=== PATIENT | female | born 1965 | race Caucasian/White ===

== ENCOUNTER 2018-02-06 01:11 | Emergency (ER) | payer MEDICAID, SELFPAY ==
[2018-02-06] VITALS (53 sets, daily range): BP systolic 65–155; BP diastolic 38–103; PULSE 87–128; RESP 1–48; TEMP 36.8; O2SAT 92–100
[2018-02-06] MEDS: Amiodarone 150 MG/3 ML VIAL 300 MG IVP (01:36)
[2018-02-06 02:00] LABS: Abs Immature Grans 0.23 k/cumm (0.0-0.09); Absolute Basophil Count 0.09 k/cumm (0.0-0.2); Absolute Eosinophil Count 0.18 k/cumm (0.0-0.7); Absolute Lymphocyte Count 8.27 k/cumm (1.2-3.4); Absolute Monocyte Count 0.28 k/cumm (0.11-0.7); Eosinophils % 1.9; HCT 45.7 % (36.0-46.0); HGB 15.6 g/dL (12.0-15.5); Immature Grans % 2.5; Mean Corp. HGB Concentration 34.1 g/dL (32.0-36.0); Mean Corpuscular Hemoglobin 31.1 pg (27.0-33.0); Mean Corpuscular Volume 91.2 fL (80-95); Mean Platelet Volume 10.6 fL (8.0-11.0); Neutrophils % 2.9; Platelet Count 292 x1000/uL (130-400); RBC 5.01 m/cumm (4.00-5.20); RBC Distribution Width 13.3 % (11.7-14.6); White Blood Cell Count 9.32 k/cumm (4.4-10.8)
--- NOTE | 2018-02-06 02:02 | ED.GENADUL_ITS ---
Discharge Plan Disposition Patient Disposition: [facility] Condition: Stable Discharge Details Chief Complaint: CodeBlue Clinical Impression: Cardiac arrest with ventricular fibrillation, ST elevation (STEMI) myocardial infarction Primary Care Provider: Sarah Cole ED Provider: Rafa Espinoza Cidra Meds and New Rx's Prescriptions: No Action tolterodine [Detrol] 2 MG tablet 2 mg PO HS Qty: 14 RF: 0 Medical Decision Making Patient unresponsive with no pulse and agonal respirations. CODE BLUE called. Everything occurred relatively quickly and at the same time. Patient was intubated by me with a 7.0 ET tube on the first attempt without any complications. She required no medications. IO was placed in the right tibia by nursing. IV was placed in the left antecubital by EMS. CPR was started. Monitor and pads applied. Patient found to be in V. fib. Patient shocked and CPR resumed. Epinephrine given on recheck patient remained in V. fib with no pulse. Second shock was given. Second round of epinephrine was given. CPR was continued. Third round of epinephrine given. 300 mg of amiodarone given. Third shock given. CPR continued. Patient eventually developed an organized rhythm and developed a pulse. She began to breathe on her own. Because of complaints of back followed by chest pain concern for dissection. Possibility of PE. Possibility of [place]. Initial EKG sinus rhythm. V3 appeared to have some ST elevation but her other leads were unremarkable. Blood pressure did drop prior to going to CAT scan. She received a couple of doses of phenylephrine and ultimately was started on a norepinephrine drip. She was brought to CAT scan. Head and cervical spine CT obtained because of her collapse in the waiting room. Chest abdomen pelvis CTA to rule out PE and dissection. Laboratory studies sent. NG tube was placed by nursing. Plan to Place Obrien when return from CT. In CT scan she actually woke up and seemed to be purposeful reaching for tubes. She also vomited. She was given Versed as a bolus and started on a drip for sedation. Laboratory studies significant for a white count of 9.3 with an ANC of only 270. She has mostly lymphocytes present but no blasts reported. Coags are normal. Chemistries show a potassium of 2.2. She is ordered for 3 rounds of IV potassium. Bicarb was 20. Anion gap 20. Creatinine 1.2. Glucose 280. Magnesium and calcium are normal. Initial troponin 0.15 which is indeterminate. On return from CT scan patient was being maintained on lactated ringer, norepinephrine, Versed. She required periodic boluses of Versed in addition to titrating her Versed drip up. However, her blood pressure was good and we were able to titrate her norepinephrine down. Repeat EKG done showed sinus rhythm with ST elevation now present in V1 through V4. There was no reciprocal change noted. There were no limb lead changes noted, however, there is a distinct difference between this EKG in the first and I immediately called [facility] for cardiology consultation. Head and cervical spine CT scan were negative for traumatic injury. While on the line with [facility] cardiology CTA of the chest abdomen and pelvis returned negative for dissection, negative for pulmonary embolus, some left basilar changes but no pleural effusion or pericardial effusion. An ABG was obtained which showed a pH of 7.3, bicarb is 17, PCO2 is 34 and PO2 82. DART was dispatched. Given the 15 minutes of CPR and the likelihood the patient would be back to [employer] within the window required we did not give thrombolytics. She did receive Plavix down her NG tube, aspirin rectally, and heparin was started. We also decided to start an amiodarone drip given that she responded to an amiodarone bolus. On arrival DART elected to start her on propofol drip and turn off the Versed. Amiodarone drip was started. Norepinephrine was turned off. Heparin and potassium were continued. Patient was stable at the time of leaving the emergency department. Lab Data Lab results reviewed: Yes I reviewed the patient's lab results. ECG Data Attestation: I personally reviewed and interpreted this ECG (s) as follows: HPI General Mode of arrival: ambulatory . Date/Time Provider Initiated Documentation: 02/06/18 01:46 . Limitations to Documentation: other (v-fib arrest) . Information obtained by: family . HPI Narrative: Patient was brought into the ED by her because of complaint of back and chest pain. After registering while still in the waiting room she collapsed. She was brought back to the resuscitation room. As I entered the room she was unresponsive with agonal respirations. She had no pulse. Code was immediately called. reports that she has no past medical history and is on no medications. He reports that she was fine when she went to bed. She woke him up complaining of back pain. She also reported chest pain which is when he decided to bring her in. He states that she smoked a cigarette on the way in and stated she was feeling better. Related Data Home Medications Medication Instructions Recorded Confirmed tolterodine [Detrol] 2 mg PO HS #14 tablet 08/10/15 Previous Rx's Medication Instructions Recorded tolterodine [Detrol] 2 mg PO HS #14 tablet 08/10/15 Allergies Allergy/AdvReac Type Severity Reaction Status Date / Time No Known Allergies Allergy Unverified 08/10/15 09:03 Review of Systems Review of Systems Unobtainable due to (critical patient) [facility] Social History Smoking/Tobacco Use Status: Current every day Exam Const Other: Unresponsive with agonal respirations HENMT Head: normocephalic General nose exam: external nose abnormal nasal abrasion (Entire nose has a large abrasion) Mouth: tongue normal, oropharynx normal and moist mucous membranes Neck Neck: trachea midline and supple Resp Auscultation: clear to auscultation bilaterally (Lungs clear after patient intubated equal breath sounds present.) Cardio Other: Initial evaluation without pulses GI Inspection: non-distended Palpation: soft Skin General skin exam: no rashes or lesions noted Neuro General: other (Unresponsive to any stimuli.) Extrem General: no clubbing, cyanosis or edema Procedures Intubation sedative: none Laryngoscope: Benjy ET Tube Size: 7 ET Tube Uncuffed: Yes Tube Secured Depth (cm): 24 Tube Secured Location: lips Tube Placement Confirmation: visualized tube passing through cords, equal breath sounds bilaterally and confirmation by capnometry Critical Care Time Critical Care Time: Yes Total Critical Care Time: 120 Attestation: Critical care time for V. fib arrest and STEMI
[2018-02-06 02:10] LABS: Absolute Neutrophil Count 0.27 k/cumm (1.2-6.7)
[2018-02-06 02:15] LABS: ALT 82 U/L (12-78); AST 83 U/L (15-37); Albumin 3.5 g/dL (3.4-5.0); Alkaline Phosphatase 92 U/L (46-116); Anion Gap 20.3 mmol/L (3-11); BUN 12 mg/dL (7-18); Bilirubin, Total 0.1 mg/dL (0.2-1.0); CO2 19.7 mmol/L (21.0-32.0); CREATININE 1.18 mg/dL (0.55-1.02); Calcium 8.6 mg/dL (8.5-10.1); Chloride 100 mmol/L (98-107); Glucose 280 mg/dL (70-100); Magnesium 2.1 mg/dL (1.8-2.4); Sodium 140 mmol/L (136-145); Total Protein 7.2 g/dL (6.4-8.2)
[2018-02-06 02:21] LABS: Potassium 2.2 mmol/L (3.5-5.1); Troponin I 0.15 ng/mL (0.00-0.06)
[2018-02-06 02:28] LABS: PTT Activated 23.9 sec (21.0-31.4); Prothrombin Time 9.5 sec (9.3-11.0)
[2018-02-06 02:30] LABS: Diff Comment Agrees w/ Instrument
[2018-02-06] MEDS: Midazolam 2 MG/2 ML VIAL 4 MG IVP ×2 (02:30→03:40)
--- NOTE | 2018-02-06 02:30 | DI.CT_ITS ---
SYMPTOM/DIAGNOSIS: SYNCOPE AND COLLAPSE CRANIAL CT: A noncontrast enhanced examination was performed. There is no evidence of an intra or extra axial hemorrhage, mass, edema or fluid collection. The ventricles are unremarkable. There is no skull fracture. The sinuses are unremarkable. There is no mass or diffusion. The soft tissues are unremarkable. SUMMARY: No acute intra cranial abnormality is identified. C-SPINE CT: The study was conducted according to the usual protocol without contrast enhancement. There is straightening of the normal cervical lordosis. Mild central spinal stenosis secondary to disc bulges and osteophytic spurring is noted and is most advanced at C5-C6. The soft tissues are unremarkable. The lung apices are normal. The nasogastric and endotracheal tubes are present. The visualized portions of these tubes are in good position. SUMMARY: There is no acute abnormality involving the cervical spine.
[2018-02-06] MEDS: Midazolam 2 MG/2 ML VIAL 3 MG IVP (02:40)
--- NOTE | 2018-02-06 02:50 | DI.CT_ITS ---
SYMPTOM/DIAGNOSIS: BACK/CHEST PAIN WITH SYNCOPE CT THORAX, ABDOMEN AND PELVIS: This is a CTA examination and was carried out according to the usual protocol with intravenous administration of [address] angiography was performed with multi slice acquisition and multi planar and 3D reconstruction. The pulmonary arteries are normal with no evidence of embolic disease. The aorta is normal. There is no aneurysm or dissection. There are nonspecific left lung infiltrates or edema. The pleural space is normal. There is no pneumothorax or pleural effusion. The heart is normal. The lymph nodes are unremarkable. No acute bony abnormality seen. The soft tissues are unremarkable. SUMMARY: Nonspecific predominant left lung infiltrate. No evidence of overt congestive failure. The findings most likely represent an acute pneumonitis and should be correlated with the patient's clinical status. Follow up imaging is suggested to assess clearing.
--- NOTE | 2018-02-06 02:53 | DI.VRAD_ITS ---
EXAM: CT Head Without Contrast EXAM DATE/TIME: 02/06/2018 1:53 AM CLINICAL HISTORY: 52 years old, female; Injury or trauma; Fall; Initial encounter; Blunt trauma (contusions or hematomas); With loss of consciousness; Not specified; Injury date: 11/07/17; Injury details: Fall face first TECHNIQUE: Axial computed tomography images of the head/brain without contrast. All CT scans at this facility use at least one of these dose optimization techniques: automated exposure control; mA and/or kV adjustment per patient size (includes targeted exams where dose is matched to clinical indication); or iterative reconstruction. Coronal and sagittal reformatted images were created and reviewed. COMPARISON: No relevant prior studies available. FINDINGS: Brain: Normal. No hemorrhage. No significant white matter disease. No edema. Ventricles: Normal. No ventriculomegaly. Bones/joints: Normal. No acute fracture. Sinuses: Normal as visualized. No acute sinusitis. Mastoid air cells: Normal as visualized. No mastoid effusion. Soft tissues: Normal. IMPRESSION: No acute intracranial abnormality. EXAM: CT Cervical Spine Without Contrast EXAM DATE/TIME: 02/06/2018 1:53 AM CLINICAL HISTORY: 52 years old, female; Injury or trauma; Fall; Initial encounter; Blunt trauma (contusions or hematomas); With loss of consciousness; Not specified; Injury date: 11/07/17; Injury details: Fall face first TECHNIQUE: Axial computed tomography images of the cervical spine without intravenous contrast. All CT scans at this facility use at least one of these dose optimization techniques: automated exposure control; mA and/or kV adjustment per patient size (includes targeted exams where dose is matched to clinical indication); or iterative reconstruction. Coronal and sagittal reformatted images were created and reviewed. COMPARISON: No relevant prior studies available. FINDINGS: Vertebrae: There is straightening of the normal cervical lordosis. Discs/Spinal canal/Neural foramina: There is mild central spinal stenosis, secondary to disc buldge/osteophytic spurring. Advanced DJD at C5-6. Soft tissues: Unremarkable. Lungs: Lung apices are normal. Other: Nasogastric and endotracheal tubes are present. IMPRESSION: No acute abnormality. Dictated and Authenticated by: Sharon Shaw MD. Ordering:RANDA Craig MD
[2018-02-06] MEDS: Midazolam 2 MG/2 ML VIAL IVP (02:55)
[2018-02-06] MEDS: Omnipaque 350 MG/ML 100 ML BTL IJ (02:59)
[2018-02-06] MEDS: POTASSIUM CHLORIDE 10 MEQ/100 ML BAG 100 MEQ IVPB ×2 (03:00→04:19)
[2018-02-06 03:30] LABS: HCO3 17 mmol/L (22-28); pCO2 34 mmHg (34-47); pH 7.31 (7.35-7.45); pO2 82 mmHg (83-108); sO2 97 % (94-98); tCO2 16 mmol/L (22-29)
[2018-02-06 03:32] LABS: FIO2 100 %; Site Left Radial
--- NOTE | 2018-02-06 03:34 | DI.VRAD_ITS ---
EXAM: CT Angiography Chest With Contrast EXAM DATE/TIME: 02/06/2018 1:53 AM CLINICAL HISTORY: 52 years old, female; Pain; Chest pain; Type not specified; Patient HX: Back and chest pain with syncope; Additional info: Evaluate for pe and disection TECHNIQUE: Axial computed tomographic angiography images of the chest with intravenous contrast using CT angiography protocol. All CT scans at this facility use at least one of these dose optimization techniques: automated exposure control; mA and/or kV adjustment per patient size (includes targeted exams where dose is matched to clinical indication); or iterative reconstruction. Coronal and sagittal reformatted images were created and reviewed. MIP reconstructed images were created and reviewed. CONTRAST: 100 ml of Omnipaque 350 administered intravenously. COMPARISON: No relevant prior studies available. FINDINGS: Pulmonary arteries: Normal. No pulmonary emboli. Aorta: Normal. No aortic aneurysm. No aortic dissection. Lungs: Nonspecific left lung predominant infiltrate or edema. Pleural space: Normal. No pneumothorax. No pleural effusion. Heart: Normal. No cardiomegaly. No pericardial effusion. Lymph nodes: Unremarkable. No enlarged lymph nodes. Bones/joints: Unremarkable. No acute fracture. Soft tissues: Unremarkable. IMPRESSION: Nonspecific left lung predominant infiltrate or edema. EXAM: CT Angiography Abdomen and Pelvis With Contrast EXAM DATE/TIME: 02/06/2018 1:53 AM CLINICAL HISTORY: 52 years old, female; Pain; Chest pain; Type not specified; Patient HX: Back and chest pain with syncope; Additional info: Evaluate for pe and disection TECHNIQUE: Axial computed tomographic angiography images of the abdomen and pelvis with intravenous contrast material, including non-contrast images if performed. MIP and/or 3D reconstructed images were created and reviewed. All CT scans at this facility use at least one of these dose optimization techniques: automated exposure control; mA and/or kV adjustment per patient size (includes targeted exams where dose is matched to clinical indication); or iterative reconstruction. Coronal and sagittal reformatted images were created and reviewed. MIP reconstructed images were created and reviewed. CONTRAST: 100 ml of Omnipaque 350 administered intravenously. COMPARISON: No relevant prior studies available. FINDINGS: Tubes, catheters and devices: Obrien catheter in urinary bladder. VASCULATURE: Aorta: No aortic aneurysm. No aortic dissection. Celiac trunk and mesenteric arteries: No occlusion or significant stenosis. Renal arteries: No occlusion or significant stenosis. Right iliac arteries: No occlusion or significant stenosis. Right femoral/popliteal arteries: No occlusion or significant stenosis of the imaged proximal femoral artery. The popliteal artery was not imaged. Left iliac arteries: No occlusion or significant stenosis. Left femoral/popliteal arteries: No occlusion or significant stenosis of the imaged proximal femoral artery. The popliteal artery was not imaged. ABDOMEN: Liver: No mass. Gallbladder and bile ducts: Unremarkable. No calcified stones. No ductal dilation. Pancreas: Unremarkable. No mass. No ductal dilation. Spleen: Unremarkable. No splenomegaly. Adrenals: Unremarkable. No mass. Kidneys and ureters: Unremarkable. No solid mass. No hydronephrosis. Stomach and bowel: Unremarkable. No obstruction. No mucosal thickening. Appendix: No evidence of appendicitis. PELVIS: Bladder: Unremarkable. No mass. Reproductive: Suggestion of 2.4 cm left ovarian cyst. ABDOMEN and PELVIS: Intraperitoneal space: Unremarkable. No free air. No significant fluid collection. Bones/joints: No acute fracture. No dislocation. Soft tissues: Unremarkable. Lymph nodes: Unremarkable. No enlarged lymph nodes. IMPRESSION: Suggestion of 2.4 cm left ovarian cyst. Dictated and Authenticated by: Rakesh Domingo MD. Ordering:RANDA Craig MD
[2018-02-06] MEDS: Lactated Ringers 1,000 ML 1000 ML IV (03:55)
[2018-02-06] MEDS: Lactated Ringers 1,000 ML 200 ML IV (03:57)
[2018-02-06] MEDS: Aspirin 300 MG SUPP PR (04:18)
[2018-02-06] MEDS: Clopidogrel 300 MG TAB NG (04:18)
--- NOTE | 2018-02-06 05:23 | NUR.NOTE ---
Nursing Note: YULISA juarez and in discussion for patient sedation, decision to start Propofol, Lidocaine given to pt via I/O by YULISA.
[2018-02-06 11:45] LABS: Lymphocytes % 88.7
== END 2018-02-06 05:08 | disposition short-term general hospital (02) ==
PROVIDERS: Emergency Provider Emergency Medicine; PCP Family Medicine
DX: I49.01 Ventricular fibrillation (principal); I46.9 Cardiac arrest, cause unspecified; I21.3 ST elevation (STEMI) myocardial infarction of unspecified site; F17.210 Nicotine dependence, cigarettes, uncomplicated
CPT/HCPCS: 31500; 36415; 36680; 74177; 80053; 82805; 92950; 93005; 96361; 96365; 96366; 96368; 96375; 96376; 99291; 99292; 36600; 70450; 72125; 83735; 84484; 85025; 85610; 85730; 93010; J0282; J2250; J3480; J3490

== ENCOUNTER 2018-03-11 11:51 | Emergency (ER) | payer MEDICAID, SELFPAY ==
[2018-03-11] VITALS (35 sets, daily range): BP systolic 93–117; BP diastolic 47–87; PULSE 60–84; RESP 11–20; TEMP 36.7; O2SAT 99–100
--- NOTE | 2018-03-11 12:08 | W.ED.GENAD ---
Discharge Plan Disposition Patient Disposition: HOME Condition: Stable Discharge Details Chief Complaint: Chest Pain Clinical Impression: Chest pain Primary Care Provider: Sarah Cole ED Provider: Rakesh Portillo Home Meds and New Rx's Prescriptions: Continued tolterodine [Detrol] 2 MG tablet 2 mg PO HS Qty: 14 RF: 0 atorvastatin 80 mg Tablet 80 mg PO .QHS RF: 0 nicotine [Nicoderm CQ] 14 mg/24 hr Patch 24 Hour 1 patch DAILY RF: 0 citalopram [Celexa] 10 mg Tablet 10 mg PO DAILY RF: 0 clopidogrel [Plavix] 75 mg Tablet 75 mg PO DAILY RF: 0 aspirin 81 mg Tablet,Delayed Release (Dr/Ec) 81 mg PO DAILY RF: 0 spironolactone [Aldactone] 25 mg Tablet 25 mg PO DAILY RF: 0 metoprolol succinate [Toprol XL] 25 mg Tablet Extended Release 24 Hr 25 mg PO DAILY RF: 0 lisinopril 2.5 mg Tablet 2.5 mg PO DAILY RF: 0 melatonin 5 mg Tablet 5 mg PO .QHS RF: 0 Discharge Instructions Instructions: Chest Pain (ED) Additional Instructions: Your blood work did not show any damage to the heart follow up with your primary care provider IF you have chest pain that lasts longer, moves to the jaw, neck, back or arms, become sweaty, or have nausea/vomit return to the emergency department for reevaluation Medical Decision Making 52 yo female with hx of CAD s/p vfib arrest and stent placement in January, who comes in with sharp chest pain lasting a few seconds. She states she had the pain last night and today so came here for an eval. Denies any pain or symptoms now, and denies having any sob, diaphoresis, n/v. Her ekg shows t wave inversions in v3-v6 with her only old ekg's being on the night she had her stemi/cardiac arrest. Pain doesn't seem typical of acs as lasts just a second or two and goes away without intervention. No hypoxia, tachycardia or evidence of dvt so doubt PE at this time. No teraing back pain and had negative CTA in January so doubt dissection. Clear lungs without pleuritic pain and no fever or cough so doubt pna/ptx initial labs and troponin negative, bedside u/s shows no pericardial effusion. Remains stable without tachycardia or hypoxia. Will obtain delta troponin and ekg. Continues to have no symptoms at this time pt remains asymptomatic. She has a second negative troponin and also unchanged ecg. She is going to f/u with her pcp and return precautions were given Lab Data Lab results reviewed: Yes I reviewed the patient's lab results. ECG Data Attestation: I personally reviewed and interpreted this ECG (s) as follows: Prior ECG tracings: not available for review Interpretation: sinus rhythm, rate of 80, pr 132, t wave inversions in v3-v6 2nd ekg shows sinus rhythm, rate of 64, pr 142, no acute changes from 1st ekg HPI General Mode of arrival: ambulatory. Date/Time Provider Initiated Documentation: 03/11/18 11:52. Limitations to Documentation: no limitations. Information obtained by: patient. History of Present Illness 52 year old F presents to the emergency department with the chief complaint of chest pain, described as mild and moderate, with intensity rated at 2. Quality is described as stabbing, and is localized to the chest. Patient reports no radiation. Patient started experiencing this hour(s) (1) and it has been intermittent. No relieving factors improve symptom(s), No exacerbating factors reported . Patient notes no other symptoms.. Patient did receive the following treatments prior to arrival, none Related Data Home Medications Medication Instructions Recorded Confirmed tolterodine [Detrol] 2 mg PO HS #14 tablet 08/10/15 03/11/18 aspirin 81 mg PO DAILY 03/11/18 03/11/18 atorvastatin 80 mg PO .QHS 03/11/18 03/11/18 citalopram [Celexa] 10 mg PO DAILY 03/11/18 03/11/18 clopidogrel [Plavix] 75 mg PO DAILY 03/11/18 03/11/18 lisinopril 2.5 mg PO DAILY 03/11/18 03/11/18 melatonin 5 mg PO .QHS 03/11/18 03/11/18 metoprolol succinate [Toprol XL] 25 mg PO DAILY 03/11/18 03/11/18 nicotine [Nicoderm CQ] 1 patch DAILY 03/11/18 03/11/18 spironolactone [Aldactone] 25 mg PO DAILY 03/11/18 03/11/18 Previous Rx's Medication Instructions Recorded tolterodine [Detrol] 2 mg PO HS #14 tablet 08/10/15 Allergies Allergy/AdvReac Type Severity Reaction Status Date / Time No Known Allergies Allergy Unverified 03/11/18 12:17 General Stated Complaint: Chest Pain JIN: 2 Review of Systems Review of Systems All systems reviewed & are unremarkable except as noted in HPI and below Constitutional Denies chills, Denies fever(s) and Denies weakness Cardiovascular Denies dyspnea Respiratory Denies dyspnea Gastrointestinal Denies abdominal pain, Denies nausea and Denies vomiting Musculoskeletal Denies joint swelling Integumentary/Breasts Denies rash Neurologic Denies weakness [facility] Social History Smoking/Tobacco Use Status: Current every day Exam Const General: no acute distress Orientation: alert HENMT Head: normal to inspection Ears: external ears normal General nose exam: external nose normal Mouth: moist mucous membranes Eyes General: appearance normal, both eyes and all related structures Neck Neck: normal visual inspection Resp Effort & Inspection: normal respiratory effort and able to speak in complete sentences Cardio Rate: regular rate Skin General skin exam: no rashes or lesions noted Neuro General: alert and oriented x3 Extrem General: normal to inspection Psych Mental Status: mental status grossly normal Course Vital Signs Temperature 36.7 C 03/11/18 11:57 Pulse 74 03/11/18 11:57 Respiratory Rate 15 03/11/18 11:57 Blood Pressure 117/60 03/11/18 11:57 Pulse Oximetry 100 03/11/18 11:57 Temperature 36.7 C 03/11/18 11:57 Temperature Source Temporal Artery Scan 03/11/18 11:57 Pulse 74 03/11/18 11:57 Respiratory Rate 15 03/11/18 11:57 Respiratory Effort Non-Labored 03/11/18 12:05 Blood Pressure 117/60 03/11/18 11:57 Blood Pressure Position Supine 03/11/18 11:57 Pulse Oximetry 100 03/11/18 11:57 Oxygen Delivery Method Room Air 03/11/18 11:57 Oxygen Flow Rate 0 03/11/18 11:57 Pain Level 0 03/11/18 11:57
[2018-03-11 12:09] LABS: Abs Immature Grans 0.01 k/cumm (0.0-0.09); Absolute Basophil Count 0.05 k/cumm (0.0-0.2); Absolute Eosinophil Count 0.36 k/cumm (0.0-0.7); Absolute Lymphocyte Count 2.09 k/cumm (1.2-3.4); Absolute Monocyte Count 0.44 k/cumm (0.11-0.7); Absolute Neutrophil Count 4.52 k/cumm (1.2-6.7); Basophils % 0.7; Eosinophils % 4.8; HCT 39.1 % (36.0-46.0); HGB 12.8 g/dL (12.0-15.5); Immature Grans % 0.1; Mean Corp. HGB Concentration 32.7 g/dL (32.0-36.0); Mean Corpuscular Hemoglobin 30.8 pg (27.0-33.0); Mean Corpuscular Volume 94.2 fL (80-95); Mean Platelet Volume 9.9 fL (8.0-11.0); Monocytes % 5.9; Neutrophils % 60.5; Platelet Count 294 x1000/uL (130-400); RBC 4.15 m/cumm (4.00-5.20); RBC Distribution Width 13.9 % (11.7-14.6); White Blood Cell Count 7.47 k/cumm (4.4-10.8)
--- NOTE | 2018-03-11 12:15 | ED.GENADUL_ITS ---
Discharge Plan Disposition Patient Disposition: HOME Condition: Stable Discharge Details Chief Complaint: Chest Pain Clinical Impression: Chest pain Primary Care Provider: Sarah Cole ED Provider: Rakesh Portillo Home Meds and New Rx's Prescriptions: Continued tolterodine [Detrol] 2 MG tablet 2 mg PO HS Qty: 14 RF: 0 atorvastatin 80 mg Tablet 80 mg PO .QHS RF: 0 nicotine [Nicoderm CQ] 14 mg/24 hr Patch 24 Hour 1 patch DAILY RF: 0 citalopram [Celexa] 10 mg Tablet 10 mg PO DAILY RF: 0 clopidogrel [Plavix] 75 mg Tablet 75 mg PO DAILY RF: 0 aspirin 81 mg Tablet,Delayed Release (Dr/Ec) 81 mg PO DAILY RF: 0 spironolactone [Aldactone] 25 mg Tablet 25 mg PO DAILY RF: 0 metoprolol succinate [Toprol XL] 25 mg Tablet Extended Release 24 Hr 25 mg PO DAILY RF: 0 lisinopril 2.5 mg Tablet 2.5 mg PO DAILY RF: 0 melatonin 5 mg Tablet 5 mg PO .QHS RF: 0 Discharge Instructions Instructions: Chest Pain (ED) Additional Instructions: Your blood work did not show any damage to the heart follow up with your primary care provider IF you have chest pain that lasts longer, moves to the jaw, neck, back or arms, become sweaty, or have nausea/vomit return to the emergency department for reevaluation Medical Decision Making 52 yo female with hx of CAD s/p vfib arrest and stent placement in January, who comes in with sharp chest pain lasting a few seconds. She states she had the pain last night and today so came here for an eval. Denies any pain or symptoms now, and denies having any sob, diaphoresis, n/v. Her ekg shows t wave inversions in v3-v6 with her only old ekg's being on the night she had her stemi/cardiac arrest. Pain doesn't seem typical of acs as lasts just a second or two and goes away without intervention. No hypoxia, tachycardia or evidence of dvt so doubt PE at this time. No teraing back pain and had negative CTA in January so doubt dissection. Clear lungs without pleuritic pain and no fever or cough so doubt pna/ptx initial labs and troponin negative, bedside u/s shows no pericardial effusion. Remains stable without tachycardia or hypoxia. Will obtain delta troponin and ekg. Continues to have no symptoms at this time pt remains asymptomatic. She has a second negative troponin and also unchanged ecg. She is going to f/u with her pcp and return precautions were given Lab Data Lab results reviewed: Yes I reviewed the patient's lab results. ECG Data Attestation: I personally reviewed and interpreted this ECG (s) as follows: Prior ECG tracings: not available for review Interpretation: sinus rhythm, rate of 80, pr 132, t wave inversions in v3-v6 2nd ekg shows sinus rhythm, rate of 64, pr 142, no acute changes from 1st ekg HPI General Mode of arrival: ambulatory . Date/Time Provider Initiated Documentation: 03/11/18 11:52 . Limitations to Documentation: no limitations . Information obtained by: patient . History of Present Illness 52 year old F presents to the emergency department with the chief complaint of chest pain, described as mild and moderate, with intensity rated at 2. Quality is described as stabbing, and is localized to the chest. Patient reports no radiation. Patient started experiencing this hour(s) (1) and it has been intermittent. No relieving factors improve symptom(s), No exacerbating factors reported . Patient notes no other symptoms.. Patient did receive the following treatments prior to arrival, none Related Data Home Medications Medication Instructions Recorded Confirmed tolterodine [Detrol] 2 mg PO HS #14 tablet 08/10/15 03/11/18 aspirin 81 mg PO DAILY 03/11/18 03/11/18 atorvastatin 80 mg PO .QHS 03/11/18 03/11/18 citalopram [Celexa] 10 mg PO DAILY 03/11/18 03/11/18 clopidogrel [Plavix] 75 mg PO DAILY 03/11/18 03/11/18 lisinopril 2.5 mg PO DAILY 03/11/18 03/11/18 melatonin 5 mg PO .QHS 03/11/18 03/11/18 metoprolol succinate [Toprol XL] 25 mg PO DAILY 03/11/18 03/11/18 nicotine [Nicoderm CQ] 1 patch DAILY 03/11/18 03/11/18 spironolactone [Aldactone] 25 mg PO DAILY 03/11/18 03/11/18 Previous Rx's Medication Instructions Recorded tolterodine [Detrol] 2 mg PO HS #14 tablet 08/10/15 Allergies Allergy/AdvReac Type Severity Reaction Status Date / Time No Known Allergies Allergy Unverified 03/11/18 12:17 General Stated Complaint: Chest Pain JIN: 2 Review of Systems Review of Systems All systems reviewed & are unremarkable except as noted in HPI and below Constitutional Denies chills, Denies fever(s) and Denies weakness Cardiovascular Denies dyspnea Respiratory Denies dyspnea Gastrointestinal Denies abdominal pain, Denies nausea and Denies vomiting Musculoskeletal Denies joint swelling Integumentary/Breasts Denies rash Neurologic Denies weakness [facility] Social History Smoking/Tobacco Use Status: Current every day Exam Const General: no acute distress Orientation: alert HENMT Head: normal to inspection Ears: external ears normal General nose exam: external nose normal Mouth: moist mucous membranes Eyes General: appearance normal, both eyes and all related structures Neck Neck: normal visual inspection Resp Effort & Inspection: normal respiratory effort and able to speak in complete sentences Cardio Rate: regular rate Skin General skin exam: no rashes or lesions noted Neuro General: alert and oriented x3 Extrem General: normal to inspection Psych Mental Status: mental status grossly normal Course Vital Signs Temperature 36.7 C 03/11/18 11:57 Pulse 74 03/11/18 11:57 Respiratory Rate 15 03/11/18 11:57 Blood Pressure 117/60 03/11/18 11:57 Pulse Oximetry 100 03/11/18 11:57 Temperature 36.7 C 03/11/18 11:57 Temperature Source Temporal Artery Scan 03/11/18 11:57 Pulse 74 03/11/18 11:57 Respiratory Rate 15 03/11/18 11:57 Respiratory Effort Non-Labored 03/11/18 12:05 Blood Pressure 117/60 03/11/18 11:57 Blood Pressure Position Supine 03/11/18 11:57 Pulse Oximetry 100 03/11/18 11:57 Oxygen Delivery Method Room Air 03/11/18 11:57 Oxygen Flow Rate 0 03/11/18 11:57 Pain Level 0 03/11/18 11:57
[2018-03-11 12:23] LABS: ALT 27 U/L (12-78); AST 20 U/L (15-37); Albumin 3.8 g/dL (3.4-5.0); Alkaline Phosphatase 98 U/L (46-116); Anion Gap 8.4 mmol/L (3-11); BUN 10 mg/dL (7-18); Bilirubin, Total 0.4 mg/dL (0.2-1.0); CO2 28.6 mmol/L (21.0-32.0); CREATININE 0.78 mg/dL (0.55-1.02); Calcium 9.2 mg/dL (8.5-10.1); Chloride 102 mmol/L (98-107); Glucose 98 mg/dL (70-100); PTT Activated 20.5 sec (21.0-31.4); Potassium 3.6 mmol/L (3.5-5.1); Prothrombin Time 10.1 sec (9.3-11.0); Sodium 139 mmol/L (136-145); Total Protein 7.9 g/dL (6.4-8.2)
[2018-03-11 12:28] LABS: Troponin I < 0.02 ng/mL (0.00-0.06)
[2018-03-11 14:46] LABS: Troponin I < 0.02 ng/mL (0.00-0.06)
== END 2018-03-11 15:02 | disposition home or self-care (01) ==
PROVIDERS: Emergency Provider Emergency Medicine; PCP Family Medicine
DX: R07.9 Chest pain, unspecified (principal); Z95.5 Presence of coronary angioplasty implant and graft
CPT/HCPCS: 36415; 80053; 93005; 99285; 84484; 85025; 85610; 85730; 93010

== ENCOUNTER 2018-03-21 15:52 | Outpatient (RCR) | payer MEDICAID, SELFPAY | END 2018-03-30 09:00 | LOC: CR 15:52 | PROVIDERS: PCP Family Medicine; Visit Provider Family Medicine | DX: I25.2 Old myocardial infarction (principal); I48.91 Unspecified atrial fibrillation; Z51.89 Encounter for other specified aftercare ==

== ENCOUNTER 2018-04-16 09:00 | Outpatient (RCR) | payer MEDICAID, SELFPAY | END 2018-04-17 23:59 | disposition home or self-care (01) | LOC: CR 09:00 | PROVIDERS: PCP Family Medicine; Visit Provider Family Medicine | DX: I25.2 Old myocardial infarction (principal); I48.91 Unspecified atrial fibrillation; Z51.89 Encounter for other specified aftercare | CPT/HCPCS: S9472 ==

== ENCOUNTER 2018-05-14 10:00 | Outpatient (RCR) | payer MEDICAID, SELFPAY | END 2018-05-18 23:59 | disposition home or self-care (01) | LOC: CR 10:00 | PROVIDERS: PCP Family Medicine; Visit Provider Family Medicine | DX: I25.2 Old myocardial infarction (principal); I48.91 Unspecified atrial fibrillation; Z51.89 Encounter for other specified aftercare | CPT/HCPCS: S9472 ==

== ENCOUNTER 2018-06-16 08:00 | Outpatient (RCR) | payer MEDICAID, SELFPAY | END 2018-06-17 23:59 | disposition home or self-care (01) | LOC: CR 08:00 | PROVIDERS: PCP Family Medicine; Visit Provider Family Medicine | DX: I25.2 Old myocardial infarction (principal); I48.91 Unspecified atrial fibrillation; Z51.89 Encounter for other specified aftercare | CPT/HCPCS: S9472 ==

== ENCOUNTER 2018-06-25 11:47 | Outpatient (RCR) | payer MEDICAID, SELFPAY | END 2018-07-18 23:59 | disposition home or self-care (01) | LOC: CR 11:47 | PROVIDERS: PCP Family Medicine; Visit Provider Family Medicine | DX: I25.2 Old myocardial infarction (principal); I48.91 Unspecified atrial fibrillation; Z51.89 Encounter for other specified aftercare | CPT/HCPCS: S9472 ==

== ENCOUNTER 2019-11-02 09:36 | Outpatient (REF) | payer MEDICAID, SELFPAY ==
[2019-11-02 22:10] LABS: Calculated LDL 48 mg/dL (<100); Cholesterol 119 mg/dL (<200); HDL Cholesterol 60 mg/dL (40-60); Triglyceride 57 mg/dL (<150)
== END 2019-11-02 09:56 ==
LOC: NCHCN 09:36
PROVIDERS: PCP Family Medicine; Visit Provider Family Medicine
DX: I25.10 Atherosclerotic heart disease of native coronary artery without angina pectoris (principal); I63.9 Cerebral infarction, unspecified
CPT/HCPCS: 80061

== ENCOUNTER 2020-05-16 08:50 | Outpatient (REF) | payer MEDICAID, SELFPAY ==
[2020-05-16 13:02] LABS: HCT 40.9 % (36.0-46.0); HGB 13.1 g/dL (11.2-15.7); MCV 93.6 fL (80-95); MPV 10.8 fL (8.0-11.0); Platelet Count 266 10^3/uL (130-400); RBC 4.37 10^6/uL (3.93-5.22); RDW 12.3 % (11.7-14.6); RDW-SD 42.5 fL; WBC 7.69 10^3/uL (4.4-10.8)
[2020-05-16 13:39] LABS: ALT 30 U/L (14-59); AST 22 U/L (15-37); Albumin 3.9 g/dL (3.4-5.0); Alkaline Phosphatase 85 U/L (46-116); Anion Gap 7.8 mmol/L (3-11); BUN 13 mg/dL (7-18); Bilirubin, Total 0.5 mg/dL (0.2-1.0); CO2 27.2 mmol/L (21.0-32.0); CREATININE 0.9 mg/dL (0.55-1.02); Calcium 9.1 mg/dL (8.5-10.1); Calculated LDL 46 mg/dL (<100); Chloride 106 mmol/L (98-107); Cholesterol 124 mg/dL (<200); Glucose 97 mg/dL (74-106); HDL Cholesterol 64 mg/dL (40-60); Potassium 4.9 mmol/L (3.5-5.1); Sodium 141 mmol/L (136-145); TSH 0.85 uIU/mL (0.36-3.74); Total Protein 7.3 g/dL (6.4-8.2); Triglyceride 70 mg/dL (<150)
== END 2020-05-16 08:51 | disposition home or self-care (01) ==
LOC: NCHCN 08:50
PROVIDERS: PCP Family Medicine; Visit Provider Family Medicine
DX: R53.83 Other fatigue (principal); I25.5 Ischemic cardiomyopathy
CPT/HCPCS: 80053; 80061; 85027; 84443

== ENCOUNTER 2021-01-07 09:59 | Outpatient (REF) | payer MEDICAID, SELFPAY ==
[2021-01-08 14:21] LABS: COVID-19 RT-PCR UVMMC Result Negative (Negative)
== END 2021-01-07 10:00 | disposition home or self-care (01) ==
LOC: NCHCN 09:59
PROVIDERS: PCP Family Medicine; Visit Provider Physician Assistant Medical
DX: Z20.822 Contact with and (suspected) exposure to COVID-19 (principal); J00 Acute nasopharyngitis [common cold]
CPT/HCPCS: U0003

== ENCOUNTER 2021-06-16 01:56 | Outpatient (CLI) | payer MEDICAID, SELFPAY ==
[2021-06-16 12:43] LABS: ALT 32 U/L (14-59); AST 27 U/L (15-37); Albumin 3.8 g/dL (3.4-5.0); Alkaline Phosphatase 98 U/L (46-116); Anion Gap 7.8 mmol/L (3-11); BUN 15 mg/dL (7-18); Bilirubin, Total 0.5 mg/dL (0.2-1.0); CO2 28.2 mmol/L (21.0-32.0); CREATININE 0.8 mg/dL (0.55-1.02); Calculated LDL 46 mg/dL (<100); Chloride 104 mmol/L (98-107); Cholesterol 119 mg/dL (<200); Glucose 98 mg/dL (74-106); HDL Cholesterol 64 mg/dL (40-60); Potassium 4.5 mmol/L (3.5-5.1); Sodium 140 mmol/L (136-145); Total Protein 6.9 g/dL (6.4-8.2); Triglyceride 46 mg/dL (<150)
== END 2021-06-16 01:57 | disposition home or self-care (01) ==
LOC: LBO 01:57
PROVIDERS: PCP Family Medicine; Visit Provider Internal Medicine Cardiovascular Disease
DX: I25.10 Atherosclerotic heart disease of native coronary artery without angina pectoris (principal)
CPT/HCPCS: 36415; 80053; 80061

== ENCOUNTER 2022-06-25 15:15 | Outpatient (CLI) | payer MEDICAID, SELFPAY ==
[2022-06-25 10:11] LABS: ALT 35 U/L (14-59); AST 32 U/L (15-37); Albumin 3.8 g/dL (3.4-5.0); Alkaline Phosphatase 103 U/L (46-116); Anion Gap 7.9 mmol/L (3-11); BUN 13 mg/dL (7-18); Bilirubin, Total 0.4 mg/dL (0.2-1.0); CO2 28.1 mmol/L (21.0-32.0); CREATININE 0.9 mg/dL (0.55-1.02); Calculated LDL 42 mg/dL (<100); Chloride 104 mmol/L (98-107); Cholesterol 119 mg/dL (<200); Estimated GFR 75.03 (mL/min/1.73m2); Glucose 99 mg/dL (74-106); HDL Cholesterol 71 mg/dL (40-60); Potassium 4.6 mmol/L (3.5-5.1); Sodium 140 mmol/L (136-145); Total Protein 7.6 g/dL (6.4-8.2); Triglyceride 31 mg/dL (<150)
== END 2022-06-25 15:16 | disposition home or self-care (01) ==
LOC: LBO 15:16
PROVIDERS: PCP Family Medicine; Visit Provider Internal Medicine Cardiovascular Disease
DX: E78.2 Mixed hyperlipidemia (principal)
CPT/HCPCS: 36415; 80053; 80061

== ENCOUNTER 2022-09-19 03:38 | Outpatient (CLI) | payer MEDICAID, SELFPAY ==
[2022-09-19 08:39] LABS: ALT 29 U/L (14-59); AST 26 U/L (15-37); Albumin 3.7 g/dL (3.4-5.0); Alkaline Phosphatase 106 U/L (46-116); Anion Gap 8.7 mmol/L (3-11); BUN 10 mg/dL (7-18); Bilirubin, Total 0.5 mg/dL (0.2-1.0); CO2 31.3 mmol/L (21.0-32.0); CREATININE 0.9 mg/dL (0.55-1.02); Calcium 9.2 mg/dL (8.5-10.1); Calculated LDL 51 mg/dL (<100); Chloride 106 mmol/L (98-107); Cholesterol 127 mg/dL (<200); Estimated GFR 74.57 (mL/min/1.73m2); Glucose 105 mg/dL (74-106); HDL Cholesterol 67 mg/dL (40-60); Potassium 4.2 mmol/L (3.5-5.1); Sodium 146 mmol/L (136-145); Total Protein 7.5 g/dL (6.4-8.2); Triglyceride 47 mg/dL (<150)
== END 2022-09-19 03:39 | disposition home or self-care (01) ==
PROVIDERS: PCP Family Medicine; Visit Provider Family Medicine
DX: Z00.00 Encounter for general adult medical examination without abnormal findings (principal)
CPT/HCPCS: 36415; 80053; 80061

== ENCOUNTER 2023-09-25 20:04 | Outpatient (REF) | payer MEDICAID, SELFPAY ==
[2023-09-25 14:07] LABS: Abs Immature Grans 0.01 10^3/uL (0.0-0.06); Absolute Basophil Count 0.06 10^3/uL (0.0-0.2); Absolute Eosinophil Count 0.21 10^3/uL (0.0-0.7); Absolute Lymphocyte Count 2.36 10^3/uL (1.2-3.4); Absolute Monocyte Count 0.49 10^3/uL (0.1-0.8); Absolute Neutrophil Count 4.13 10^3/uL (1.2-6.7); Basophils % 0.8 %; Eosinophils % 2.9 %; HCT 44.9 % (36.0-46.0); HGB 14.4 g/dL (11.2-15.7); Immature Grans % 0.1 %; Lymphocytes % 32.5 %; MCH 30.3 pg (27.0-33.0); MCHC 32.1 % (32.0-36.0); MCV 94 fL (80-95); MPV 10.8 fL (8.0-11.0); Monocytes % 6.7 %; Platelet Count 278 10^3/uL (130-400); RBC 4.76 10^6/uL (3.93-5.22); RDW-SD 44.8 fL; WBC 7.26 10^3/uL (4.4-10.8)
[2023-09-25 14:42] LABS: ALT 30 U/L (14-59); AST 25 U/L (15-37); Albumin 3.9 g/dL (3.4-5.0); Alkaline Phosphatase 110 U/L (46-116); Anion Gap 8.7 mmol/L (3-11); BUN 13 mg/dL (7-18); Bilirubin, Total 0.29 mg/dL (0.2-1.0); CO2 28.3 mmol/L (21.0-32.0); Calcium 9.5 mg/dL (8.5-10.1); Calculated LDL 76 mg/dL (<100); Chloride 107 mmol/L (98-107); Cholesterol 147 mg/dL (<200); Glucose 128 mg/dL (74-106); HDL Cholesterol 58 mg/dL (40-60); Potassium 5.6 mmol/L (3.5-5.1); Sodium 144 mmol/L (136-145); Total Protein 7.2 g/dL (6.4-8.2); Triglyceride 65 mg/dL (<150); Vitamin D 25 Total 55.5 ng/mL (30-100)
== END 2023-09-25 20:05 | disposition home or self-care (01) ==
LOC: NCHCN 20:04
PROVIDERS: PCP Family Medicine; Visit Provider Family Medicine
DX: Z00.00 Encounter for general adult medical examination without abnormal findings (principal)
CPT/HCPCS: 80053; 80061; 82306; 85025

== ENCOUNTER 2024-06-16 07:59 | Outpatient (CLI) | payer MEDICAID, SELFPAY ==
[2024-06-16 07:48] LABS: HCT 40.8 % (36.0-46.0); HGB 13.4 g/dL (11.2-15.7); MCH 30.5 pg (27.0-33.0); MCHC 32.8 % (32.0-36.0); MCV 93 fL (80-95); MPV 10.3 fL (8.0-11.0); Platelet Count 275 10^3/uL (130-400); RDW-SD 43.9 fL; WBC 6.42 10^3/uL (4.4-10.8)
[2024-06-16 08:16] LABS: ALT 21 U/L (14-59); AST 22 U/L (15-37); Albumin 3.8 g/dL (3.4-5.0); Alkaline Phosphatase 115 U/L (46-116); Anion Gap 7.1 mmol/L (3-11); BUN 11 mg/dL (7-18); Bilirubin, Total 0.5 mg/dL (0.2-1.0); CO2 30.9 mmol/L (21.0-32.0); CREATININE 0.8 mg/dL (0.55-1.02); Calcium 9.4 mg/dL (8.5-10.1); Calculated LDL 53 mg/dL (<100); Chloride 107 mmol/L (98-107); Cholesterol 121 mg/dL (<200); Estimated GFR 85.35 (mL/min/1.73m2); Glucose 96 mg/dL (74-106); HDL Cholesterol 58 mg/dL (>or=50); Potassium 4.1 mmol/L (3.5-5.1); Sodium 145 mmol/L (136-145); Total Protein 7.3 g/dL (6.4-8.2); Triglyceride 54 mg/dL (<150)
== END 2024-06-16 08:00 | disposition home or self-care (01) ==
LOC: LBO 08:00
PROVIDERS: PCP Family Medicine; Visit Provider Internal Medicine Cardiovascular Disease
DX: I25.5 Ischemic cardiomyopathy (principal); E78.2 Mixed hyperlipidemia
CPT/HCPCS: 36415; 80053; 80061; 85027